=== PATIENT | female | born 1990 | race Caucasian/White ===

== ENCOUNTER 2017-06-06 19:03 | Emergency (ER) | payer BC ==
[~2017-06-06] VITALS: Ht 165.1 cm; Wt 49.7 kg
[~2017-06-06 19:03] MED LIST: ADVIL200 MG PO; CIPRO500 MG PO; REGLAN5 MG PO
[2017-06-06 19:33] LABS: HEMATOCRIT 37.5 % (36.0-46.0); MCH 29.9 PG (29.0-34.0); MCV 93.3 FL (83-99); MEAN PLAT.VOLUME 10.1 uM^3 (9.5-12.4); PLATELET COUNT 308 K/uL (156-360); RBC DIS.WIDTH-CV 11.9 % (11.8-14.6); RBC DIS.WIDTH-SD 40.8 % (39-53); RED BLOOD COUNT 4.02 M/uL (3.80-5.20); WHITE BLOOD COUNT 11.9 K/uL (4.1-10.2)
[2017-06-06 19:43] LABS: CHLORIDE 105 mEq/L (99-109); POTASSIUM 4.1 mEq/L (3.7-5.4); SODIUM 138 mEq/L (136-147)
[2017-06-06 19:46] LABS: GLUCOSE 89 mg/dL (70-99)
[2017-06-06 19:47] LABS: ANION GAP 7 MEQ/L (2-14)
[2017-06-06 19:48] LABS: TOTAL BILIRUBIN 0.3 mg/dL (0.0-1.0)
[2017-06-06 19:49] LABS: ALKALINE PHOSPHATASE 73 IU/L (3-129); GFR ESTIMATE (CALCULATED) > 59 mL/min/
[2017-06-06 19:50] LABS: UREA NITROGEN (BUN) 11 mg/dL (9-23)
[2017-06-06 19:59] LABS: QUANTITATIVE HCG < 4.0 MIU/ML
[2017-06-06 22:30] LABS: INTER. NORMALIZED RATIO 1.2; PROTHROMBIN TIME 13.5 SEC (10.2-12.9)
[2017-06-06 22:32] LABS: PTT 34.2 SEC (25-37)
[2017-06-06 22:38] LABS: LIPASE 14 U/L (1.0-51.0)
[2017-06-06] MEDS ORDERED: BENTYL20 MG PO (23:46)
[2017-06-06] MEDS ORDERED: FLAGYL500 MG PO (23:46)
[2017-06-06] MEDS ORDERED: CIPRO500 MG PO (23:46)
[2017-06-07 00:10] VITALS: BP 111/77
== END 2017-06-07 00:34 | disposition home or self-care (01) ==
LOC: EME 19:03
PROVIDERS: Emergency Medicine
DX: K52.9 Noninfective gastroenteritis and colitis, unspecified (principal); K92.1 Melena; K76.0 Fatty (change of) liver, not elsewhere classified
CPT/HCPCS: 74177; 80053; 83690; 84702; 85027; 85610; 85730; 87493; 87506; 99281; 99285; J2405; S0028